=== PATIENT | female | born 1950 | race Caucasian/White ===

== ENCOUNTER 2022-08-11 19:43 | Emergency (ER) | payer MEDICARE ==
[2022-08-11] MEDS ORDERED: Morphine 4 MG/ML Syringe IVPUSH ONE (20:14)
[2022-08-11] MEDS ORDERED: Ondansetron 4 MG/2 ML SDV IVPUSH ONE (20:16)
[2022-08-11] MEDS ORDERED: oxyCODONE 5 MG Tab PO ONE (21:12)
[2022-08-11] MEDS ORDERED: Acetaminophen 500 MG Tab PO ONE (21:12)
== END 2022-08-11 21:48 ==
LOC: DL.ED 19:43
DX: S72.001A Fracture of unspecified part of neck of right femur, initial encounter for closed fracture (principal); S52.121A Displaced fracture of head of right radius, initial encounter for closed fracture; I10 Essential (primary) hypertension; W18.30XA Fall on same level, unspecified, initial encounter
CPT/HCPCS: 29125; 73100-RT; 96374; 96375; 99282; 99284-25; A9270-GY; J2270; J2405